=== PATIENT | female | born 1940 | race Caucasian/White ===

== ENCOUNTER → 2016-11-24 | Outpatient (CLI) | payer OTHER, MEDICAID | LOC: FIMAGING 13:28 | PROVIDERS: ATTEND Internal Medicine | DX: Z13.820 Encounter for screening for osteoporosis (principal); M85.80 Other specified disorders of bone density and structure, unspecified site ==

== ENCOUNTER 2017-05-22 07:03 | Inpatient (IN) | payer OTHER, MEDICAID ==
[2017-05-11 16:00] LABS: ANION GAP 9 mEq/L (8-16); CALCIUM 10.1 mg/dL (8.5-10.4); CARBON DIOXIDE 29 mEq/l (22-31); CHLORIDE 97 mEq/L (97-110); CREATININE 0.7 mg/dL (0.6-1.0); GLOMERULAR FILTRATION RATE > 60; GLUCOSE 87 mg/dL (70-100); POTASSIUM 4.6 mEq/L (3.5-5.2); SODIUM 135 mEq/L (134-144)
[2017-05-22] MEDS ORDERED: ROPIVACAINE 0.2% 80 MG, EPINEPHrine 0.2 MG, KETOROLAC TROMETHAMINE 30 MG, morphINE 10 M... IU ONE (07:13)
[2017-05-22] MEDS ORDERED: ceFAZolin 2 GM/DEXTROSE 100 ML IV ONE (07:13)
[2017-05-22] MEDS ORDERED: ACETAMINOPHEN 500 MG TAB PO ONE (07:13)
[2017-05-22] MEDS ORDERED: TRANEXAMIC ACID 3,000 MG in NS 50 ML IRR ONE (07:13)
--- NOTE | 2017-05-22 07:13 | PDHPUP ---
History & Physical Update H&P update statement: This history and physical update is based on an assessment of the patient which was completed after admission or registration (within 24 hours), but prior to the surgery/procedure. H&P update: H&P reviewed & patient examined, no change in patient's condition since H&P completed
[2017-05-22] MEDS ORDERED: SENNOSIDES/DOCUSATE SODIUM TAB PO PRN (07:14)
[2017-05-22] MEDS ORDERED: LORazepam 1 MG TAB PO PRN (07:14)
[2017-05-22] MEDS ORDERED: BISACODYL 10 MG SUPP PR PRN (07:14)
[2017-05-22] MEDS ORDERED: SUMAtriptan 50 MG TAB PO PRN (07:14)
[2017-05-22] MEDS ORDERED: DEXAMETHASONE PO PRN (07:14)
[2017-05-22] MEDS ORDERED: traZODone 50 MG TAB PO PRN (07:14)
[2017-05-22] MEDS ORDERED: oxyCODONE IR 5 MG TAB PO PRN (07:14)
[2017-05-22] MEDS ORDERED: ONDANSETRON DISINTEGRATING 4 MG TAB PO PRN (07:14)
[2017-05-22] MEDS ORDERED: BISMUTH SUBSALICYLATE 524 MG/30 ML UDL PO PRN (07:14)
[2017-05-22] MEDS ORDERED: HYDROCORTISONE 2.5% 30 GM CRTUBE TP PRN (07:14)
[2017-05-22] MEDS ORDERED: SUCRALFATE 1 GM/10 ML UDCUP PO PRN (07:14)
[2017-05-22] MEDS ORDERED: LORazepam 0.5 MG TAB PO PRN (07:14)
[2017-05-22] MEDS ORDERED: LIDOCAINE 1% 2 ML INJ ID PRN (07:27)
[2017-05-22] MEDS ORDERED: LR 1,000 ML IV ONE (07:27)
[2017-05-22] MEDS ORDERED: BACITRACIN 50,000 UNITS/10 ML SYR IRR ONE (07:56)
[2017-05-22] MEDS ORDERED: BUPIVACAINE 0.5% 30 ML SDV ONE (07:56)
[2017-05-22] MEDS ORDERED: POLYMYXIN B SULFATE 500,000 UNIT/10 ML SYR IRR ONE (07:56)
--- NOTE | 2017-05-22 08:54 | PDANEPAE ---
ANE History of Present Illness R total shoulder arthroplasty ANE Past Medical History - Cardiovascular History Hx Hypertension: Yes Hx Arrhythmias: No Hx Chest Pain: No Hx Coronary Artery / Peripheral Vascular Disease: No Hx CHF / Valvular Disease: No Hx Palpitations: No Cardiovascular History Comment: pcp monitors bp meds. heart cath with dr rivera 2004 - Pulmonary History Hx COPD: No Hx Asthma/Reactive Airway Disease: No Hx Recent Upper Respiratory Infection: No Hx Oxygen in Use at Home: Yes O2 in Use at Home (L/minute): 1 Hx Sleep Apnea: Yes Sleep Apnea Screening Result - Last Documented: Positive Pulmonary History Comment: central and karen dx 2003. karen 2 1/2 l at noc - Neurologic History Hx Cerebrovascular Accident: No Hx Seizures: No Hx Dementia: No Neurologic History Comment: hx of spinal fusions - Endocrine History Hx Diabetes: No Hypothyroid: Yes Endocrine History Comment: hypothyroidism. cushings disease 2003 - Renal History Hx Renal Disorders: No Renal History Comment: frequency d/t hctz wears a pad. prolapsed bladder - Liver History Hx Hepatic Disorders: No - Neurological & Psychiatric Hx Hx Neurological and Psychiatric Disorders: Yes Neurological / Psychiatric History Comment: anxiety. depression. panic attacks. 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 occassional heartburn - Other Health History Other Health History: malaria 2000. fibromyalgia 2004 - Chronic Pain History Chronic Pain: Yes (hip pain and right knee pain, fibromyalgia) - Surgical History Prior Surgeries: right shoulder scope with dr briggs 04/07/13. left shoulder scope with dr iqbal 11/08/10. left humerus revision of fx with dr iqbal 12/06/12. left humerus fx repair 2012. cataract surgery bilateral 2011 yag laser 2010 one month after right cataract. left thumb repair 2009. left knee scope 2009. total right knee replacement 2008. c5-6 fusion 2008. l5-s1 fusion 2007. tracy fundoplication 2006. elfego with oophorectomy 2003. lap karyn 2002. right knee scope 2002. right achilies tendon repair 2004. bunionectomy- right 1997. 3 right knee surgeries prior to 1979. tubal ligation 1978. barthialon cyst 1977. tonsillectomy 1959 ANE Review of Systems Review of Systems: - Exercise capacity METS (RN): 2 METS ANE Patient History - Allergies Allergies/Adverse Reactions: chlorhexidine Allergy (Intermediate, Verified 02/05/16 14:54) Hives CHLOROPREP Allergy (Intermediate, Uncoded 11/03/10 16:09) HERPES LIKE BUMPS - Home Medications Home Medications: Aspirin [Aspirin 81mg (*)] 81 mg PO DAILY 02/26/16 [Last Taken 02/26/16] Lisinopril [Zestril 20 mg (*)] 20 mg PO DAILY 02/26/16 [Last Taken 02/26/16] Acetaminophen [Tylenol 325mg (*)] 650 mg PO Q4HRS PRN 05/03/17 [Last Taken Unknown] Acyclovir [Zovirax 400 mg (*)] 400 mg PO BID 05/03/17 [Last Taken Unknown] Alendronate Sodium [Fosamax 70 MG (*)] 70 mg PO MO@0700 05/03/17 [Last Taken Unknown] Amoxicillin 2,000 mg PO AD PRN 05/03/17 [Last Taken Unknown] Armodafinil [Nuvigil 250mg] 250 mg PO DAILY 05/03/17 [Last Taken Unknown] Bimatoprost 0.01% [Lumigan 0.01% (*)] 1 drops EACHEYE HS 05/03/17 [Last Taken Unknown] Bisacodyl [Magic Bullet 10 mg] 10 mg NC DAILY PRN 05/03/17 [Last Taken Unknown] Bismuth Subsalicylate [Pepto-Bismol oral liquid (*)] 30 ml PO Q1H PRN 05/03/17 [ Last Taken Unknown] Calcium Carbonate [Tums 500MG (*)] 2,000 - 4,000 mg PO DAILY PRN 05/03/17 [Last Taken Unknown] Dexamethasone 10 ml PO QID PRN 05/03/17 [Last Taken Unknown] Herbals/Supplements -Info Only 1 ea PO DAILY 05/03/17 [Last Taken Unknown] Hydrocortisone 2.5% [Hydrocortisone 2.5% cream (*)] 1 tonya TP BID PRN 05/03/17 [ Last Taken Unknown] LORazepam [Ativan (*)] 0.5 mg PO TID PRN 05/03/17 [Last Taken Unknown] LORazepam [Ativan (*)] 1 mg PO DAILY PRN 05/03/17 [Last Taken Unknown] Levothyroxine [Synthroid 75 mcg (*)] 75 mcg PO DAILY06 05/03/17 [Last Taken Unknown] Liothyronine Sodium [Cytomel 5 mcg (*)] 5 mcg PO DAILY 05/03/17 [Last Taken Unknown] Magic Mouth Wash 5 ml PO DAILY PRN 05/03/17 [Last Taken Unknown] Multivitamins [Multivitamin (*)] 1 each PO DAILY 05/03/17 [Last Taken Unknown] Omeprazole [Prilosec 20 mg] 20 mg PO DAILY 05/03/17 [Last Taken Unknown] Ondansetron Odt [Zofran Odt 4 mg (*)] 8 mg PO Q8HRS PRN 05/03/17 [Last Taken Unknown] SUMAtriptan [Imitrex 50 MG (*)] 100 mg PO DAILY PRN 05/03/17 [Last Taken Unknown ] Sennosides/Docusate Sodium [Senna-S Tablet] 2 each PO DAILY PRN 05/03/17 [Last Taken Unknown] Sucralfate [Carafate 1gm/10ml Oral Liquid (*)] 1 gm PO QID PRN 05/03/17 [Last Taken Unknown] Venlafaxine Xr [Effexor Xr 75MG (*)] 375 mg PO DAILY 05/03/17 [Last Taken Unknown] amLODIPine BESYLATE [Norvasc 10 mg (*)] 10 mg PO DAILY 05/03/17 [Last Taken Unknown] morphINE SR [MS Contin/Oramorph 60 mg (*)] 60 mg PO BID 05/03/17 [Last Taken Unknown] oxyCODONE IR [Oxycodone Ir (*)] 20 - 40 mg PO DAILY PRN 05/03/17 [Last Taken Unknown] traZODone [traZODONE 50MG (*)] 25 mg PO HS PRN 05/03/17 [Last Taken Unknown] - NPO status NPO Since - Liquids (Date): 05/22/17 NPO Since - Liquids (Time): 18:00 NPO Since - Solids (Date): 05/22/17 NPO Since - Solids (Time): 18:00 - Smoking Hx Smoking Status: Never smoked - Family Anes Hx Family Hx Anesthesia Complications: none ANE Labs/Vital Signs - Labs Result Diagrams: 05/11/17 15:15 - Vital Signs Blood Pressure: 143/79 Heart Rate: 73 Respiratory Rate: 16 O2 Sat (%): 97 Height: 162.56 cm Weight: 68.039 kg ANE Physical Exam - Airway Neck exam: FROM Mallampati Score: Class 1 Mouth exam: poor dentition (history of gingivitis) - Pulmonary Pulmonary: clear to auscultation - Cardiovascular Cardiovascular: regular rate and rhythym - ASA Status ASA Status: III ANE Anesthesia Plan Anesthesia Plan: general endotracheal anesthesia Regional Anesthesia: single shot NB
[2017-05-22] MEDS ORDERED: morphINE SR 60 MG TAB PO SCH (09:00)
[2017-05-22] MEDS ORDERED: NON-FORMULARY NEW DRUG (Omeprazole [Prilosec 20 Mg] 20 MG) PO SCH (09:00)
[2017-05-22] MEDS ORDERED: MIDAZOLAM 2 MG/2 ML VIAL IVP ONE (09:04)
[2017-05-22] MEDS ORDERED: PROPOFOL 200 MG/20 ML VIAL ONE ×2 (09:08→09:53)
[2017-05-22] MEDS ORDERED: KETAMINE 100 MG/10 ML SYR ONE (09:08)
[2017-05-22] MEDS ORDERED: fentaNYL 100 MCG/2 ML INJ ONE ×2 (09:08)
[2017-05-22] MEDS ORDERED: ROCURONIUM 50 MG/5 ML VIAL ONE (09:10)
[2017-05-22] MEDS ORDERED: DEXAMETHASONE 4 MG/ML VIAL ONE (09:11)
[2017-05-22] MEDS ORDERED: clonIDINE 1 MG/10 ML VIAL EP ONE (09:11)
[2017-05-22] MEDS ORDERED: ROPIVACAINE HCL 150 MG/30 ML INJ ONE (09:11)
[2017-05-22] MEDS ORDERED: MIDAZOLAM 2 MG/2 ML VIAL ONE (09:12)
[2017-05-22] MEDS ORDERED: TRANEXAMIC ACID 3,000 MG/50 ML BAG IRR ONE (09:17)
[2017-05-22] MEDS ORDERED: epHEDrine SULFATE 10 MG/ML SYR ONE ×2 (10:23→11:02)
[2017-05-22] MEDS ORDERED: CALCIUM CHLORIDE 1 GM/10 ML INJ ONE (10:46)
[2017-05-22] MEDS ORDERED: THROMBIN (BOVINE) 5,000 UNIT VIAL TP ONE (10:46)
[2017-05-22] MEDS ORDERED: ONDANSETRON 4 MG/2 ML VIAL ONE (11:44)
[2017-05-22] MEDS ORDERED: NEOSTIGMINE METHYLSULFATE 3 MG/3 ML SYR ONE (11:49)
[2017-05-22] MEDS ORDERED: GLYCOPYRROLATE 0.2 MG/1 ML VIAL ONE (11:49)
[2017-05-22] MEDS ORDERED: ACETAMINOPHEN 325 MG TAB PO PRN (12:11)
[2017-05-22] MEDS ORDERED: HYDROCODONE/APAP 5/325 TAB PO PRN (12:11)
[2017-05-22] MEDS ORDERED: HYDROmorphONE/DILAUDID 1 MG/ML INJ IVP PRN (12:11)
[2017-05-22] MEDS ORDERED: PROMETHAZINE HCL 25 MG/ML INJ IVP PRN (12:11)
[2017-05-22] MEDS ORDERED: ONDANSETRON 4 MG/2 ML VIAL IVP PRN (12:11)
--- NOTE | 2017-05-22 12:11 | POSTOPPROG ---
Post Op Note Date of Operation: 05/22/17 Surgeon: Akiko Key Spiritual Care Coordinator: ray Anesthesiologist: bee Anesthesia: GET(General Endotracheal), Other (Specify) Pre-op Diagnosis: r shoulder oa Procedure: r reverse tsa Inf/Abcess present in the surg proc area at time of surgery?: No Depth: Deep Incisional (Fascial) EBL: 100-500
[2017-05-22] MEDS ORDERED: NALOXONE HCL 0.4 MG/ML INJ IVP PRN (12:41)
[2017-05-22] MEDS ORDERED: fentaNYL 100 MCG/2 ML INJ IVP PRN (12:41)
--- NOTE | 2017-05-22 13:32 | POSTANESTH ---
Post Anesthetic Evaluation Cardiovascular Status: Similar to Pre-Op Cond Respiratory Status: Similar to Pre-op Cond. Level of Consciousness/Mental Status: Can Participate in Eval Pain Control: Adequate, Prn Tx Ordered Nausea/Vomiting Control: Adequate, Prn Tx Ordered Complications Possibly Related to Anesthesia: None Noted
--- NOTE | 2017-05-22 13:33 | GOP ---
[f rep st] OPERATIVE REPORT DATE OF OPERATION: 05/22/2017 SURGEON: Akiko Key MD STEWARD/STEWARDESS DECK: Israel Mora, certified P.A., whose presence was medically necessary. ANESTHESIA: Endotracheal intubation plus scalene nerve block per surgeon's request. PREOPERATIVE DIAGNOSIS: Right shoulder osteoarthritis. POSTOPERATIVE DIAGNOSIS: Right shoulder osteoarthritis. PROCEDURE PERFORMED: Right reverse total shoulder arthroplasty. FINDINGS: INDICATIONS: This is a 77-year-old female with a several-month history of right shoulder pain worsen ing with use and with time despite multiple conservative measures. MRI exam revealed a torn rotator cuff with atrophy to the supraspinatus, as well as osteoarthritic changes of the shoulder. She wishe s to have surgery in order to resolve the problem. DESCRIPTION OF PROCEDURE: The patient was brought to the operating room after the right side had bee n identified as the correct side by the patient, nurse, physician. Once in the operating room, she w as given a scalene block on the right side, then placed under general anesthesia using endotracheal i ntubation. Once asleep, she was placed in a beach chair position. The right upper extremity sterile ly prepped and draped in the usual fashion using HEIDI/solution. Once prepped and draped, a linear inc ision was made at the deltopectoral crease extending from just lateral to the coracoid process to the axillary crease. Sharp dissection carried down through the skin and subcutaneous layers. The delto pectoral interval was identified with the cephalic vein brought medially rather than laterally. Deep er dissection was carried onto the shoulder. Noted to have a large amount of swelling within the gle nohumeral joint with no significant rotator cuff noted, with only shoulder capsule remaining in the a osmin. The capsule was incised. Abundant amount of serous fluid was within the glenohumeral joint. D issection was carried proximally and distally in order to gain access into the humeral head. The arm was able to be externally rotated 90 degrees, delivering the humeral head out of the shoulder. Osci llating saw was used to make 45 degree cut across the humeral head. Spurring from the inferior porti on of the remainder of the humeral head was removed. Canal finder was placed within the humerus, and then sequential broaches were used up to a size 14 into the shoulder which was noted to fit securely , at which point, a size [address]. A concave reamer was used to create a concave surfac e within the proximal humerus and a trial guide was put into place, noted to fit securely. The trial was left in place. The humerus was then subluxed posteriorly in order to gain access to the glenoid . Glenoid had the labrum removed. The center of the glenoid was identified, had a guidewire placed within it. The glenoid was then reamed until achieving roughened bone, and then a lug drill was pass ed over the guidewire for the central peg of the glenoid component. Smaller drill holes were made in the superior and inferior portions of the glenoid in order to get rotational control of the implant. Once completed, the wound was thoroughly irrigated with an antibiotic solution, and then a 15 mm gl enoid base plate was put into place. A central screw, as well as 4 peripheral screws were placed int o the base plate, and were secured onto the bone with the superior and inferior screws locked into pl kurtis using screw covers. Once in place, a trial was put into place, noted to fit securely with very l ittle overhang. Therefore, a 5 mm concentric Glenosphere was tapped into place. It was tugged upon to ensure that it was adequately locked into place using the Beavers taper. Once in place, trial reduc tion was performed, noted that a +0 polyethylene liner seemed to fit best. Therefore, all instrument s were removed from the humerus and a size 14 stem with size small reverse body was put into place wi th a screw placed across the 2 components. Trial reduction was again performed, noted that a +0 line r seemed to fit best. Therefore, a +0 polyethylene liner was snapped into place. The arm was easily reduced. The wound was thoroughly irrigated with antibiotic solution. Joint cocktail was injected around the shoulder itself. The capsular layer anteriorly was closed using 0 Ethibond suture in a fi [id number]-nu-rynix type stitch with plasma gel placed intra-articularly. 0 Vicryl suture was used to tack together the fascia of the deltopectoral interval. 0 Vicryl and 2-0 Vicryl suture were used for the skin. Tranexamic acid had been irrigated through the wound prior to closure, and then the skin was closed using 3-0 V-Loc suture in a running subcuticular stitch for the skin. The wound was then dres sed with Steri-Strips, Xeroform, 4 x 4s, and Tegaderm. She was completely undraped in the operating room, had a sling placed on the right upper extremity. She was then woken up, extubated, transferred onto a stretcher, and sent to recovery room in good condition. /[id number]/MODL
[2017-05-22] MEDS: ACYCLOVIR 400 MG TAB PO SCH ×2 (14:06→20:42)
[2017-05-22] MEDS: KETOROLAC 15 MG/1 ML SDV IVP SCH (17:06)
[2017-05-22] MEDS: ceFAZolin 2 GM/DEXTROSE 100 ML IV SCH (17:08)
[2017-05-22] MEDS: LISINOPRIL 20 MG TAB PO SCH (17:27)
[2017-05-22] MEDS: Armodafinil [Nuvigil 250mg] 250 MG PO SCH (17:27)
[2017-05-22] MEDS: LIOTHYRONINE SODIUM 5 MCG TAB PO SCH (17:27)
[2017-05-22] MEDS: PANTOPRAZOLE SODIUM 40 MG TAB PO SCH (17:28)
[2017-05-22] MEDS: VENLAFAXINE XR 75 MG CAP PO SCH (17:28)
[2017-05-22] MEDS: morphINE SR 30 MG TAB PO SCH (20:41)
[2017-05-22] MEDS ORDERED: BIMATOPROST 0.01% 2.5 ML OPHT.BTL EACHEYE SCH (21:00)
[2017-05-23] MEDS: KETOROLAC 15 MG/1 ML SDV IVP SCH ×3 (00:10→12:15)
[2017-05-23] MEDS: ceFAZolin 2 GM/DEXTROSE 100 ML IV SCH (00:10)
[2017-05-23 03:48] VITALS: TEMP 98.2
[2017-05-23] MEDS: OXYCODONE/APAP 5/325 TAB PO PRN ×3 (04:07→12:15)
[2017-05-23] MEDS ORDERED: LEVOTHYROXINE 75 MCG TAB PO SCH (06:00)
[2017-05-23] MEDS: morphINE SR 30 MG TAB PO SCH (08:03)
[2017-05-23 08:09] VITALS: BP 128/84; PULSE 57; RESP 20
[2017-05-23] MEDS: ACYCLOVIR 400 MG TAB PO SCH (08:10)
[2017-05-23] MEDS: LISINOPRIL 20 MG TAB PO SCH (08:10)
[2017-05-23] MEDS: VENLAFAXINE XR 75 MG CAP PO SCH (08:10)
[2017-05-23] MEDS: LIOTHYRONINE SODIUM 5 MCG TAB PO SCH (08:10)
[2017-05-23] MEDS: Armodafinil [Nuvigil 250mg] 250 MG PO SCH (08:11)
[2017-05-23] MEDS: PANTOPRAZOLE SODIUM 40 MG TAB PO SCH (08:11)
--- NOTE | 2017-05-23 09:59 | SOAPPROG ---
SOAP Progress Note Assessment/Plan: Assessment: Plan: - d/c home, with PT and OT - sling on, may remove for feeding, dressing and exercise - follow up in 1 week 05/23/17 09:58 Subjective: Doing well, pain is minimal. Feels ready to d/c home Objective: Vital Signs Temp Pulse Resp BP Pulse Ox 36.8 C 57 L 20 128/84 H 100 05/23/17 08:08 05/23/17 08:08 05/23/17 08:08 05/23/17 08:08 05/23/17 08:08 Laboratory Results 05/11/17 15:15 05/22/17 05/23/17 05/24/17 05:59 05:59 05:59 Intake Total 1275 Output Total 1050 Balance 225 Dressing CDI, sensation intact, NVI - Time Spent With Patient Time Spent With Patient: 15 - Pending Discharge Pending Discharge Within 24 Hours: Yes Pending Discharge Within 48 Hours: No Pending Discharge Date: 05/24/17 Pending Discharge Time: 11:00 ICD10 Worksheet Patient Problems: Problems Problem Status Onset Closed intratrochanteric fracture of left femur Acute OA (osteoarthritis) of hip Acute
--- NOTE | 2017-05-23 10:03 | PDIAF ---
- Diagnosis Code Status: Full Code - Medication Management Discharge Medications: Medications to Continue on Transfer Aspirin [Aspirin 81mg (*)] 81 mg PO DAILY 02/26/16 [Last Taken 02/26/16] Lisinopril [Zestril 20 mg (*)] 20 mg PO DAILY 02/26/16 [Last Taken 02/26/16] Acetaminophen [Tylenol 325mg (*)] 650 mg PO Q4HRS PRN 05/03/17 [Last Taken Unknown] Acyclovir [Zovirax 400 mg (*)] 400 mg PO BID 05/03/17 [Last Taken Unknown] Alendronate Sodium [Fosamax 70 MG (*)] 70 mg PO MO@0700 05/03/17 [Last Taken Unknown] Amoxicillin 2,000 mg PO AD PRN 05/03/17 [Last Taken Unknown] Armodafinil [Nuvigil 250mg] 250 mg PO DAILY 05/03/17 [Last Taken Unknown] Bimatoprost 0.01% [Lumigan 0.01% (*)] 1 drops EACHEYE HS 05/03/17 [Last Taken Unknown] Bisacodyl [Magic Bullet 10 mg] 10 mg MD DAILY PRN 05/03/17 [Last Taken Unknown] Bismuth Subsalicylate [Pepto-Bismol oral liquid (*)] 30 ml PO Q1H PRN 05/03/17 [ Last Taken Unknown] Calcium Carbonate [Tums 500MG (*)] 2,000 - 4,000 mg PO DAILY PRN 05/03/17 [Last Taken Unknown] Dexamethasone 10 ml PO QID PRN 05/03/17 [Last Taken Unknown] Herbals/Supplements -Info Only 1 ea PO DAILY 05/03/17 [Last Taken Unknown] Hydrocortisone 2.5% [Hydrocortisone 2.5% cream (*)] 1 tonya TP BID PRN 05/03/17 [ Last Taken Unknown] LORazepam [Ativan (*)] 0.5 mg PO TID PRN 05/03/17 [Last Taken Unknown] LORazepam [Ativan (*)] 1 mg PO DAILY PRN 05/03/17 [Last Taken Unknown] Levothyroxine [Synthroid 75 mcg (*)] 75 mcg PO DAILY06 05/03/17 [Last Taken Unknown] Liothyronine Sodium [Cytomel 5 mcg (*)] 5 mcg PO DAILY 05/03/17 [Last Taken Unknown] Magic Mouth Wash 5 ml PO DAILY PRN 05/03/17 [Last Taken Unknown] Multivitamins [Multivitamin (*)] 1 each PO DAILY 05/03/17 [Last Taken Unknown] Omeprazole [Prilosec 20 mg] 20 mg PO DAILY 05/03/17 [Last Taken Unknown] Ondansetron Odt [Zofran Odt 4 mg (*)] 8 mg PO Q8HRS PRN 05/03/17 [Last Taken Unknown] SUMAtriptan [Imitrex 50 MG (*)] 100 mg PO DAILY PRN 05/03/17 [Last Taken Unknown ] Sennosides/Docusate Sodium [Senna-S Tablet] 2 each PO DAILY PRN 05/03/17 [Last Taken Unknown] Sucralfate [Carafate 1gm/10ml Oral Liquid (*)] 1 gm PO QID PRN 05/03/17 [Last Taken Unknown] Venlafaxine Xr [Effexor Xr 75MG (*)] 375 mg PO DAILY 05/03/17 [Last Taken Unknown] amLODIPine BESYLATE [Norvasc 10 mg (*)] 10 mg PO DAILY 05/03/17 [Last Taken Unknown] morphINE SR [MS Contin/Oramorph 60 mg (*)] 60 mg PO BID 05/03/17 [Last Taken Unknown] oxyCODONE IR [Oxycodone Ir (*)] 20 - 40 mg PO DAILY PRN 05/03/17 [Last Taken Unknown] traZODone [traZODONE 50MG (*)] 25 mg PO HS PRN 05/03/17 [Last Taken Unknown] Discharge Medications: Refer to the Discharge Home Medication list for PRN reason. PICC Care - Routine: N/A - Orders Services needed: Physical Therapy, Occupational Therapy Diet Recommendation: no restrictions on diet Diet Texture: Regular Texture Diet Cesar: Not applicable Wound Care Instructions: Keep dressing on, may shower over dressing. Will remove in office Activity/Weight Bearing Restrictions: Sling all times for support, may remove for dressing, feeding, and exercise. She is clear for light AROM. - Follow Up Care Current Providers and Referrals: Antony Bland MD [Primary Care Provider] -
[2017-05-23 10:46] VITALS: O2SAT 91
--- NOTE | 2017-05-23 10:56 | PDIAF ---
- Diagnosis Code Status: Full Code - Medication Management Discharge Medications: Medications to Continue on Transfer Aspirin [Aspirin 81mg (*)] 81 mg PO DAILY 02/26/16 [Last Taken 02/26/16] Lisinopril [Zestril 20 mg (*)] 20 mg PO DAILY 02/26/16 [Last Taken 02/26/16] Acetaminophen [Tylenol 325mg (*)] 650 mg PO Q4HRS PRN 05/03/17 [Last Taken Unknown] Acyclovir [Zovirax 400 mg (*)] 400 mg PO BID 05/03/17 [Last Taken Unknown] Alendronate Sodium [Fosamax 70 MG (*)] 70 mg PO MO@0700 05/03/17 [Last Taken Unknown] Amoxicillin 2,000 mg PO AD PRN 05/03/17 [Last Taken Unknown] Armodafinil [Nuvigil 250mg] 250 mg PO DAILY 05/03/17 [Last Taken Unknown] Bimatoprost 0.01% [Lumigan 0.01% (*)] 1 drops EACHEYE HS 05/03/17 [Last Taken Unknown] Bisacodyl [Magic Bullet 10 mg] 10 mg WA DAILY PRN 05/03/17 [Last Taken Unknown] Bismuth Subsalicylate [Pepto-Bismol oral liquid (*)] 30 ml PO Q1H PRN 05/03/17 [ Last Taken Unknown] Calcium Carbonate [Tums 500MG (*)] 2,000 - 4,000 mg PO DAILY PRN 05/03/17 [Last Taken Unknown] Dexamethasone 10 ml PO QID PRN 05/03/17 [Last Taken Unknown] Herbals/Supplements -Info Only 1 ea PO DAILY 05/03/17 [Last Taken Unknown] Hydrocortisone 2.5% [Hydrocortisone 2.5% cream (*)] 1 tonya TP BID PRN 05/03/17 [ Last Taken Unknown] LORazepam [Ativan (*)] 0.5 mg PO TID PRN 05/03/17 [Last Taken Unknown] LORazepam [Ativan (*)] 1 mg PO DAILY PRN 05/03/17 [Last Taken Unknown] Levothyroxine [Synthroid 75 mcg (*)] 75 mcg PO DAILY06 05/03/17 [Last Taken Unknown] Liothyronine Sodium [Cytomel 5 mcg (*)] 5 mcg PO DAILY 05/03/17 [Last Taken Unknown] Magic Mouth Wash 5 ml PO DAILY PRN 05/03/17 [Last Taken Unknown] Multivitamins [Multivitamin (*)] 1 each PO DAILY 05/03/17 [Last Taken Unknown] Omeprazole [Prilosec 20 mg] 20 mg PO DAILY 05/03/17 [Last Taken Unknown] Ondansetron Odt [Zofran Odt 4 mg (*)] 8 mg PO Q8HRS PRN 05/03/17 [Last Taken Unknown] SUMAtriptan [Imitrex 50 MG (*)] 100 mg PO DAILY PRN 05/03/17 [Last Taken Unknown ] Sennosides/Docusate Sodium [Senna-S Tablet] 2 each PO DAILY PRN 05/03/17 [Last Taken Unknown] Sucralfate [Carafate 1gm/10ml Oral Liquid (*)] 1 gm PO QID PRN 05/03/17 [Last Taken Unknown] Venlafaxine Xr [Effexor Xr 75MG (*)] 375 mg PO DAILY 05/03/17 [Last Taken Unknown] amLODIPine BESYLATE [Norvasc 10 mg (*)] 10 mg PO DAILY 05/03/17 [Last Taken Unknown] morphINE SR [MS Contin/Oramorph 60 mg (*)] 60 mg PO BID 05/03/17 [Last Taken Unknown] oxyCODONE IR [Oxycodone Ir (*)] 20 - 40 mg PO DAILY PRN 05/03/17 [Last Taken Unknown] traZODone [traZODONE 50MG (*)] 25 mg PO HS PRN 05/03/17 [Last Taken Unknown] Discharge Medications: Refer to the Discharge Home Medication list for PRN reason. PICC Care - Routine: N/A - Orders Services needed: Home Care, Physical Therapy, Occupational Therapy Home Care Face to Face: I certify that this patient was under my care and that I had the required [id number] encounter meeting the encounter requirements on the discharge day. My findings support the fact that the patient is homebound as defined in Home Care Face to Face Continued: CMS Chapter 7 Medicare Benefits Manual 30.1.1 , The condition of the patient is such that there exists a normal inability to leave home and consequently, leaving home would require a considerable and taxing effort. Diet Recommendation: no restrictions on diet Diet Texture: Regular Texture Diet Cesar: Not applicable Wound Care Instructions: Keep dressing on, may shower over dressing. Will remove in office Activity/Weight Bearing Restrictions: Sling all times for support, may remove for dressing, feeding, and exercise. She is clear for light AROM. - Follow Up Care Current Providers and Referrals: Antony Bland MD [Primary Care Provider] - Akiko Key MD [Medical Doctor] - follow up in 2 weeks (unless already has follow up scheduled)
--- NOTE | 2017-05-23 11:19 | ASMTCMCOM ---
CM Note CM Note Notes: Pt will dc today. She normally lives at [facility] but she will be staying w/her partner Gustavo at his place so that he can be around to help her. Gustavo's address included in referral and given to inessa mendez/[facility]. Pt will have PT/OT and RN to help set up meds. D/W [facility] Fischer and RN. Date Signed: 05/23/2017 11:19 AM Electronically Signed By:Lo Ascencio RN
--- NOTE | 2017-05-23 15:51 | ASDISCHSUM ---
Discharge Information Plan Status:Home with Home Health Medically Cleared to Leave: Discharge Date:05/23/2017 01:24 PM D/C Disposition:Home Health Service ADT D/C Disposition:Home, Routine, Self-Care Projected Discharge Date:05/23/2017 11:00 AM Transportation at D/C:Friend Discharge Delay Reason: Follow-Up Date:05/23/2017 11:00 AM Discharge Slot: Final Diagnosis: Placement Information Referral Type:*Home Health Care Services Referral ID:[id number] Provider Name:[facility] Address 1:[address] [place] [address] Address 2: City:[place] Selection Factors: State:[place] Patient Contact Information Contact Name:FABIOLA Relationship:Life Partner Address:[address] City:[place] Alternate Phone: State/Zip Code:[place] [address] Email: Financial Information Financial Class:Medicare Advantage Plans Primary Plan Desc:[employer] MEDICARE Primary Plan Number:[id number] Secondary Plan Desc:[place] Secondary Plan Number:[id number] Assessment Information [facility] CM Progress Note CM Note CM Note Notes: Pt will dc today. She normally lives at [facility] but she will be staying w/her partner Gustavo at his place so that he can be around to help her. Gustavo's address included in referral and given to inessa mendez/[facility]. Pt will have PT/OT and RN to help set up meds. D/W WILSON Fischer and RN. Date Signed: 05/23/2017 11:19 AM Electronically Signed By:Lo Ascencio RN Intervention Information
[2017-05-28] MEDS ORDERED: ALENDRONATE SODIUM 70 MG TAB PO SCH (07:00)
== END 2017-05-23 13:24 | disposition home or self-care (01) | DRG 483 ==
LOC: F3N 07:03
PROVIDERS: ADMIT Orthopaedic Surgery; ATTEND Orthopaedic Surgery
PROC: 0RRJ00Z Replacement of Right Shoulder Joint with Reverse Ball and Socket Synthetic Substitute, Open Approach (ICD-10-PCS; principal; 2017-05-22 08:30)
DX: M19.011 Primary osteoarthritis, right shoulder (principal); E03.9 Hypothyroidism, unspecified; M81.0 Age-related osteoporosis without current pathological fracture; F41.0 Panic disorder [episodic paroxysmal anxiety]; G89.4 Chronic pain syndrome; F32.9 Major depressive disorder, single episode, unspecified; G47.31 Primary central sleep apnea; I10 Essential (primary) hypertension; Z96.651 Presence of right artificial knee joint
CPT/HCPCS: 97161-GP; 97166-GO; C1713; J0171; J0690; J0735; J1100; J1885; J2250; J2405; J2704; J2710; J2795; J3010

== ENCOUNTER 2018-01-01 07:15 | Inpatient (IN) | payer OTHER, MEDICAID ==
[~2018-01-01 07:15] MED LIST: *PREOP 1000MG*TRANEX ACID/NS 100 ML IV ONE; TRANEXAMIC ACID 1,000 MG in NS (SYRINGE) 50 ML IV ONE
[2018-01-01] MEDS ORDERED: GABAPENTIN 300 MG CAP PO ONE (10:24)
[2018-01-01] MEDS ORDERED: ACETAMINOPHEN 500 MG TAB PO ONE (10:24)
[2018-01-01] MEDS ORDERED: ceFAZolin 2 GM/SWFI 2 GM/20 ML SYR IVP ONE (10:24)
[2018-01-01] MEDS ORDERED: LR 1,000 ML IV ONE (10:25)
[2018-01-01] MEDS ORDERED: LIDOCAINE 1% 2 ML INJ ID PRN (10:25)
[2018-01-01] MEDS ORDERED: LIDOCAINE 1% 2 ML INJ ONE (10:33)
[2018-01-01 11:33] LABS: PLATELET COUNT 256 10^3/uL (150-400)
[2018-01-01] MEDS ORDERED: BUPIVACAINE 0.25% 30 ML SDV ONE (13:54)
[2018-01-01] MEDS ORDERED: BACITRACIN 50,000 UNITS/10 ML SYR IRR ONE (13:54)
[2018-01-01] MEDS ORDERED: EPINEPHrine 1 MG/ML INJ ONE (13:54)
[2018-01-01] MEDS ORDERED: CHLORHEXIDINE GLUC HIBICLENS 118 ML BTL TP ONE (13:55)
[2018-01-01] MEDS ORDERED: POVIDONE-IODINE 30 GM OINTTUBE TP ONE (13:55)
[2018-01-01] MEDS ORDERED: THROMBIN (BOVINE) 20,000 UNIT VIAL TP ONE (13:55)
[2018-01-01] MEDS ORDERED: MIDAZOLAM 2 MG/2 ML VIAL IVP ONE (15:26)
--- NOTE | 2018-01-01 15:26 | PDANEPAE ---
ANE History of Present Illness Arm and leg pain ANE Past Medical History - Cardiovascular History Hx Hypertension: Yes Hx Arrhythmias: No Hx Chest Pain: No Hx Coronary Artery / Peripheral Vascular Disease: No Hx CHF / Valvular Disease: No Hx Palpitations: No Cardiovascular History Comment: heart cath with dr rivera 2004 - Pulmonary History Hx COPD: No Hx Asthma/Reactive Airway Disease: No Hx Recent Upper Respiratory Infection: No Hx Oxygen in Use at Home: Yes Hx Sleep Apnea: Yes Sleep Apnea Screening Result - Last Documented: Positive Pulmonary History Comment: central and karen dx 2004. karen 2l at [facility] - Neurologic History Hx Cerebrovascular Accident: No Hx Seizures: No Hx Dementia: No Neurologic History Comment: hx of spinal fusions - Endocrine History Hx Diabetes: No Endocrine History Comment: hypothyroidism. cushings disease 2003 - Renal History Hx Renal Disorders: No Renal History Comment: frequency d/t hctz wears a pad. prolapsed bladder - Liver History Hx Hepatic Disorders: No - Neurological & Psychiatric Hx Hx Neurological and Psychiatric Disorders: Yes Neurological / Psychiatric History Comment: anxiety. depression. panic attacks. 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 occassional heartburn. IBS - Other Health History Other Health History: malaria 2000. fibromyalgia 2004 - Chronic Pain History Chronic Pain: Yes (CERVICAL & LUMBAR ,hip pain and right knee pain, fibromyalgia ) - Surgical History Prior Surgeries: R SHOULDER REVERSAL. L FEMUR REPAIR W/DEE. right shoulder scope with dr briggs 04/07/13. left shoulder scope with dr iqbal 11/08/10. left humerus revision of fx with dr iqbal 12/06/12. left humerus fx repair 2012. cataract surgery bilateral 2011 yag laser 2010 one month after right cataract. left thumb repair 2009. left knee scope 2009. total right knee replacement 2008. c5-6 fusion 2008. l5-s1 fusion 2007. tracy fundoplication 2006. elfego with oophorectomy 2004. lap karyn 2002. right knee scope 2002. right achilies tendon repair 2004. bunionectomy- right 1997. 3 right knee surgeries prior to 1979. tubal ligation 1978. barthialon cyst 1977. tonsillectomy 1959 ANE Review of Systems Review of Systems: - Exercise capacity METS (RN): 2 METS ANE Patient History - Allergies Allergies/Adverse Reactions: chlorhexidine Allergy (Intermediate, Verified 06/25/16 14:54) Hives CHLOROPREP Allergy (Intermediate, Uncoded 11/03/10 16:09) HERPES LIKE BUMPS - Home Medications Home Medications: Aspirin [Aspirin 81mg (*)] 81 mg PO DAILY 02/26/16 [Last Taken 1 Week Ago ~12/25] Lisinopril [Zestril 20 mg (*)] 20 mg PO DAILY 02/26/16 [Last Taken 1 Day Ago ~] Acetaminophen [Tylenol 325mg (*)] 650 mg PO Q4HRS PRN 05/03/17 [Last Taken 1 Day Ago ~12/31/17] Amoxicillin 2,000 mg PO AD PRN 05/03/17 [Last Taken 1 Month Ago ~12/02/17] Bimatoprost 0.01% [Lumigan 0.01% (*)] 1 drops EACHEYE HS 05/03/17 [Last Taken 1 Day Ago ~12/31/17] Bismuth Subsalicylate [Pepto-Bismol oral liquid (*)] 30 ml PO Q4 PRN 05/03/17 [ Last Taken 1 Year Ago ~01/01/17] Herbals/Supplements -Info Only 1 ea PO DAILY 05/03/17 [Last Taken 1 Day Ago ~] Hydrocortisone 2.5% [Hydrocortisone 2.5% cream (*)] 1 tonya TP BID PRN 05/03/17 [ Last Taken 6 Months Ago ~07/04/17] LORazepam [Ativan (*)] 1 - 2 mg PO TID PRN 05/03/17 [Last Taken 01/01/18] Levothyroxine [Synthroid 75 mcg (*)] 75 mcg PO DAILY06 05/03/17 [Last Taken ] Liothyronine Sodium [Cytomel 5 mcg (*)] 5 mcg PO DAILY 05/03/17 [Last Taken ] Magic Mouth Wash 5 ml PO DAILY PRN 05/03/17 [Last Taken 1 Day Ago ~12/31/17] Multivitamins [Multivitamin (*)] 1 each PO DAILY 05/03/17 [Last Taken 2 Days Ago ~12/30/17] Omeprazole [Prilosec 20 mg] 20 mg PO DAILY 05/03/17 [Last Taken 01/01/18] Ondansetron Odt [Zofran Odt 4 mg (*)] 8 mg PO Q8HRS PRN 05/03/17 [Last Taken 1 Day Ago ~12/31/17] SUMAtriptan [Imitrex 50 MG (*)] 100 mg PO DAILY PRN 05/03/17 [Last Taken 2 Months Ago ~11/01/17] Estradiol [Vivelle-Dot 0.075MG (*)] 0.075 mg TD MoFr@0800 12/31/17 [Last Taken 1 Day Ago ~12/31/17] Hydrochlorothiazide [HCTZ (*)] 12.5 mg PO DAILY 12/31/17 [Last Taken 1 Day Ago ~ 12/31/17] QUEtiapine FUMARATE [Seroquel 50 mg (*)] 50 mg PO HS 12/31/17 [Last Taken 1 Day Ago ~12/31/17 1900] Timolol 0.5% [TIMOPTIC 0.5% (*)] 1 drops EACHEYE BID 12/31/17 [Last Taken ] Venlafaxine HCl [Venlafaxine HCl ER] 150 mg PO DAILY 12/31/17 [Last Taken ] Venlafaxine HCl [Venlafaxine HCl ER] 225 mg PO DAILY 12/31/17 [Last Taken ] amLODIPine BESYLATE [Norvasc 10 mg (*)] 10 mg PO DAILY 12/31/17 [Last Taken 0700] morphINE SR [MS Contin/Oramorph 60 mg (*)] 60 mg PO DAILY 12/31/17 [Last Taken 01/01/18 0430] morphINE SR [MS Contin/Oramorph SR 30 mg (*)] 30 mg PO HS 12/31/17 [Last Taken 1 Day Ago ~12/31/17 1900] oxyCODONE IR [Oxycodone Ir (*)] 15 - 30 mg PO BID PRN 12/31/17 [Last Taken 01/01 0700] - NPO status NPO Since - Liquids (Date): 01/01/18 NPO Since - Liquids (Time): 09:00 NPO Since - Solids (Date): 12/31/17 NPO Since - Solids (Time): 17:30 - Smoking Hx Smoking Status: Never smoked - Family Anes Hx Family Hx Anesthesia Complications: none ANE Labs/Vital Signs - Labs Result Diagrams: 01/01/18 11:05 01/01/18 11:05 - Vital Signs Blood Pressure: 144/84 Heart Rate: 69 Respiratory Rate: 16 O2 Sat (%): 95 Height: 162.56 cm Weight: 62.596 kg ANE Physical Exam - Airway Neck exam: decreased ROM Mallampati Score: Class 2 Mouth exam: normal dental/mouth exam - Pulmonary Pulmonary: no respiratory distress - Cardiovascular Cardiovascular: regular rate and rhythym - ASA Status ASA Status: III ANE Anesthesia Plan Anesthesia Plan: general endotracheal anesthesia
[2018-01-01] MEDS ORDERED: PROPOFOL/EMULSION 500 MG/50 ML BOTTLE IV ONE ×2 (15:31→18:07)
[2018-01-01] MEDS ORDERED: fentaNYL 100 MCG/2 ML INJ ONE ×5 (15:31→20:48)
[2018-01-01] MEDS ORDERED: PROPOFOL 200 MG/20 ML VIAL ONE (15:31)
[2018-01-01] MEDS ORDERED: REMIFENTANIL HCL 1 MG VIAL ONE (15:32)
[2018-01-01] MEDS ORDERED: CITRATE DEXTROSE SOLN 500 ML BAG ONE ×2 (16:07→19:08)
[2018-01-01] MEDS ORDERED: KETAMINE 200 MG/20 ML VIAL ONE (16:21)
[2018-01-01] MEDS ORDERED: PHENYLEPHRINE HCL 100 MCG/ML SYR ONE (18:46)
[2018-01-01] MEDS ORDERED: DEXAMETHASONE 4 MG/ML VIAL ONE (19:37)
[2018-01-01] MEDS ORDERED: ROCURONIUM 50 MG/5 ML VIAL ONE (19:37)
[2018-01-01] MEDS ORDERED: ONDANSETRON 4 MG/2 ML VIAL ONE (19:37)
[2018-01-01] MEDS ORDERED: LIDOCAINE 2% 5 ML SDV ONE (19:37)
[2018-01-01] MEDS ORDERED: ceFAZolin 1 GM VIAL ONE ×2 (19:37)
[2018-01-01] MEDS ORDERED: ONDANSETRON 4 MG/2 ML VIAL IVP PRN ×2 (19:58→20:26)
[2018-01-01] MEDS ORDERED: NALOXONE HCL 0.4 MG/ML INJ IVP PRN ×2 (19:58→20:26)
--- NOTE | 2018-01-01 20:06 | GOP ---
[f rep st] OPERATIVE REPORT DATE OF OPERATION: 01/01/2018 SURGEON: Elieser Del Castillo MD NEUROSURGEON: Elieser Del Castillo MD CORPORATE CONCIERGE: HAWK Krishna ANESTHESIA: General endotracheal. 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 POSTOPERATIVE DIAGNOSIS: Progressive cervical spondylitic myelopathy with severe spinal cord josh jane and progressive loss of function. PROCEDURE PERFORMED: Removal of C5-6 anterior cervical plate with exploration of spinal fusion at th at level. Complete C3-4 and C6-7 anterior cervical diskectomy and arthrodesis with structural PEEK i nterbody spacers and local autograft. Placement of a 23 mm anterior cervical plate at C3-4 and a 25 mm plate at C6-7. Use of intraoperative microscopy and fluoroscopy. FINDINGS: ESTIMATED BLOOD LOSS: 50 cc. INDICATIONS: The patient is a 77-year-old woman with progressive myelopathic symptoms secondary to m ultilevel cervical spondylosis and severe spinal cord compression. She presents for surgical decompr ession and stabilization through an anterior and posterior approach. DESCRIPTION OF PROCEDURE: After informed consent was obtained, the patient was taken to the operatin g room and placed in the supine position with the head in the halter retractor system. The anterior cervical region was prepped and draped in sterile fashion. After fluoroscopic localization of the co rrect levels, the subcutaneous and intramuscular tissues were infiltrated with local anesthesia. Two separate incisions were created, one at C3-4 and one at C6-7, and these were carried through the mallika tysmal layer using monopolar electrocautery and carried in the avascular plane between the sternoclei domastoid and carotid sheath laterally and the strap muscles, trachea, and esophagus medially down to the prevertebral fascia which was carefully incised with Metzenbaum scissors at each level. The lar ge osteophytes were carefully removed after re-verification of the correct level using intraoperative fluoroscopy. The C5-6 anterior cervical plate was identified and carefully removed and the fusion e xplored and noted to be solid. The distraction pins were then inserted, first at C3-4, then at C6-7, during which time complete diskectomies were performed with preparation of endplates and removal of posterior longitudinal ligament at each level. Bilateral foraminotomies were performed and the poste rior osteophytes were removed as well for adequate decompression of the spinal cord and neural forami na bilaterally. Both disk spaces were copiously irrigated with antibiotic irrigation. Meticulous he mostasis was achieved. Appropriately sized grafts were then inserted with local autograft in the shelby ter under fluoroscopic image guidance. The distraction was removed serially and appropriately sized plates were placed at each level with self-drilling screws, again under fluoroscopic image guidance. Following verification of good position of the plate, screws and interbody spacers using biplanar fl uoroscopy, the locking mechanisms were engaged. The remaining autograft was placed in the anterior h ole plate, a drain was placed, and the wounds were closed in a layered fashion using interrupted Vicr yl sutures followed by Steri-Strips on the skin. COMPLICATIONS: None. DISPOSITION: The patient was then repositioned for the posterior portion of the operation. /[id number]/MODL
--- NOTE | 2018-01-01 20:10 | GOP ---
[f rep st] OPERATIVE REPORT DATE OF OPERATION: 01/01/2018 SURGEON: Elieser Del Castillo MD NEUROSURGEON: Elieser Del Castillo MD REEL BLADE BENDER FURNACE TENDER: HAWK Krishna ANESTHESIA: General endotracheal. 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 POSTOPERATIVE DIAGNOSIS: Progressive cervical spondylitic myelopathy with severe spinal cord josh jane and progressive loss of function. PROCEDURE PERFORMED: C3 through C7 posterior cervical laminectomy and placement of posterior segment al (lateral mass screw) fixation with posterior lateral fusion from the C3 through C7 using local aut ograft. Use of intraoperative microscopy and fluoroscopy. FINDINGS: ESTIMATED BLOOD LOSS: 75 cc. INDICATIONS: The patient is a 77-year-old woman with progressive myelopathic symptoms secondary to m ultilevel cervical spondylosis and severe spinal cord compression. She presents for surgical decompr ession and stabilization through an anterior and posterior approach. DESCRIPTION OF PROCEDURE: After the anterior portion of the procedure was completed, the patient was repositioned prone with the head in a Sandy head of business development. Note that neuromonitoring signals were monitored throughout the case including from baseline without patient manipulation at all. After pos ition with the head in a Sandy head of business development, the posterior cervical region was prepped and draped i n sterile fashion. After fluoroscopic localization of the correct level, the subcutaneous and intram uscular tissues were infiltrated with local anesthesia. A midline linear incision was then created f rom approximately C3 through C7. This was carried down to the fascial layer which was then incised u sing monopolar electrocautery and carried in the subperiosteal plane along the spinous processes and lamina bilaterally. Intraoperative fluoroscopy was again utilized to verify the correct levels. Fol lowing this, the dissection was carried out laterally over the facet joints. Laminectomy defects wer e then created with the Tyler drill system and the massive fluted bur drilling between the lamina a nd the lateral masses bilaterally. The bone was lifted off and carefully cleaned and used for local autograft. Lateral mass screw fixation was then placed in standard fashion at C3 through [facility]. Each individual screw was tested neurophysiologically with monopolar electrostimulation and int erpretation of the potentials by the surgeon. The rods were then placed and secured, and the facet j oints and remaining lamina, lateral masses bilaterally were decorticated, and a local autograft in th e laminectomy defect was placed out laterally. Following re-verification of good position of the scr ews and rods using biplanar fluoroscopy, a drain was placed and the wound was closed in a layered fas hion using interrupted Vicryl sutures followed by Steri-Strips on the skin. COMPLICATIONS: None. DISPOSITION: The patient is currently in the process of being repositioned for extubation. /[id number]/MODL
[2018-01-01] MEDS ORDERED: SUMAtriptan 50 MG TAB PO PRN (20:19)
[2018-01-01] MEDS ORDERED: BISMUTH SUBSALICYLATE 524 MG/30 ML UDL PO PRN (20:19)
[2018-01-01] MEDS ORDERED: ONDANSETRON DISINTEGRATING 4 MG TAB PO PRN ×2 (20:19→20:26)
[2018-01-01] MEDS ORDERED: LORazepam 1 MG TAB PO PRN (20:19)
[2018-01-01] MEDS ORDERED: HYDROCORTISONE 2.5% 30 GM CRTUBE TP PRN (20:19)
[2018-01-01] MEDS ORDERED: MAGNESIUM HYDROXIDE 30 ML UDCUP PO PRN (20:26)
[2018-01-01] MEDS ORDERED: diphenhydrAMINE 25 MG CAP PO PRN (20:26)
[2018-01-01] MEDS ORDERED: HYDROmorphONE/DILAUDID 6 MG/30 ML PCA IV PRN (20:26)
[2018-01-01] MEDS ORDERED: LACTULOSE 20 GM/30 ML UDCUP PO PRN (20:26)
[2018-01-01] MEDS ORDERED: BISACODYL 10 MG SUPP PR PRN (20:26)
--- NOTE | 2018-01-01 20:34 | POSTOPPROG ---
Post Op Note Date of Operation: 01/01/18 Surgeon: Elieser Del Castillo Sprayer Machine: Shan Anesthesiologist: Rosendo Anesthesia: GET(General Endotracheal) Pre-op Diagnosis: Cervical stenosis Post-op Diagnosis: same Indication: myelopathy Procedure: C3/4, C6/7 ACDF and C3-7 posterior fusion Findings: stenosis Inf/Abcess present in the surg proc area at time of surgery?: No EBL: 100-500 Complications: None Drains: Enzo Logan
--- NOTE | 2018-01-01 20:36 | SOAPPROG ---
ANU Progress Note Assessment/Plan: Assessment: 77 yo F sp C3/4, C6/7 ACDF and C3-7 posterior decompression and fusion Plan: stable IMCU overnight hard collar x-rays in am please call with neuro changes 01/01/18 20:34 Subjective: + neck pain, no arm pain Objective: Vital Signs Temp Pulse Resp BP Pulse Ox 36.9 C 69 16 144/84 H 95 01/01/18 11:42 01/01/18 16:16 01/01/18 16:16 01/01/18 16:16 01/01/18 16:16 Laboratory Results 01/01/18 11:05 01/01/18 11:05 somnolent PERRL, no facial droop ISABEL x 4 + light touch ICD10 Worksheet Patient Problems: Problems Problem Status Onset Closed intratrochanteric fracture of left femur Acute OA (osteoarthritis) of hip Acute
--- NOTE | 2018-01-01 20:44 | POSTANESTH ---
Post Anesthetic Evaluation Cardiovascular Status: Similar to Pre-Op Cond Respiratory Status: Similar to Pre-op Cond. Level of Consciousness/Mental Status: Alert and Oriented, Mildly Sleepy, Arousable Pain Control: Adequate, Prn Tx Ordered Nausea/Vomiting Control: Adequate, Prn Tx Ordered Complications Possibly Related to Anesthesia: None Noted
[2018-01-01] MEDS ORDERED: HYDROmorphONE/DILAUDID 2 MG/ML INJ ONE (20:49)
[2018-01-01] MEDS: HYDROmorphONE/DILAUDID 2 MG/ML INJ IVP PRN ×2 (20:53→21:31)
[2018-01-01] MEDS: fentaNYL 100 MCG/2 ML INJ IVP PRN ×2 (20:53→21:31)
[2018-01-01] MEDS: NS W/ 20 KCl/L 1,000 ML IV SCH (21:47)
[2018-01-01] MEDS ORDERED: METHOCARBAMOL 750 MG in NS 50 ML IV PRN (21:53)
[2018-01-01] MEDS: FAMOTIDINE 20 MG TAB PO SCH (21:58)
[2018-01-01] MEDS: SENNOSIDES/DOCUSATE SODIUM TAB PO SCH (21:58)
[2018-01-01] MEDS: morphINE SR 30 MG TAB PO SCH (21:58)
[2018-01-01] MEDS: GABAPENTIN 300 MG CAP PO SCH (22:01)
[2018-01-01] MEDS: DIAZEPAM 5 MG/ML 1 ML SYR IVP PRN (22:07)
[2018-01-01] MEDS ORDERED: DEXMEDETOMIDINE HCL 400 MCG in NS 100 ML IV SCH (22:30)
[2018-01-01] MEDS: ACETAMINOPHEN 500 MG TAB PO SCH ×2 (22:43→23:01)
[2018-01-01] MEDS: BIMATOPROST 0.01% 2.5 ML OPHT.BTL EACHEYE SCH (22:43)
[2018-01-01] MEDS: POLYETHYLENE GLYCOL 3350 17 GM PKT PO SCH (22:46)
[2018-01-01] MEDS: TIMOLOL 0.5% 15 ML OPHT.BTL EACHEYE SCH (22:46)
[2018-01-01] MEDS: QUEtiapine FUMARATE 50 MG TAB PO SCH ×2 (22:46→23:00)
[2018-01-01] MEDS: ceFAZolin 2 GM/DEXTROSE 100 ML IV SCH (23:22)
[2018-01-02] MEDS: GABAPENTIN 300 MG CAP PO SCH ×3 (05:05→21:57)
[2018-01-02] MEDS: LEVOTHYROXINE 75 MCG TAB PO SCH (05:05)
[2018-01-02] MEDS: DIAZEPAM 5 MG TAB PO PRN (05:05)
[2018-01-02] MEDS: ACETAMINOPHEN 500 MG TAB PO SCH ×3 (05:05→22:00)
--- NOTE | 2018-01-02 05:33 | PDMN ---
Medical Necessity Medical necessity: Pt meets INPT criteria per MD and [facility] S-330 (C3/4, C6/7 ACDF and C3-7 posterior fusion, [facility] IPO surgery).
[2018-01-02 05:41] LABS: PLATELET COUNT 190 10^3/uL (150-400)
[2018-01-02] MEDS: morphINE SR 60 MG TAB PO SCH (08:45)
[2018-01-02] MEDS: oxyCODONE IR 15 MG TAB PO PRN ×2 (08:48→15:36)
[2018-01-02] MEDS ORDERED: PANTOPRAZOLE SODIUM 40 MG TAB PO SCH (09:00)
--- NOTE | 2018-01-02 09:32 | SOAPPROG ---
ANU Progress Note Assessment/Plan: Assessment: 77 yo F POD #1 C3/4, C6/7 ACDF and C3-7 posterior decompression and fusion Plan: stable and doing well overall transfer to floor scd/anjelica for dvt prophylaxis, lovenox starts POD #3 hard collar x-rays today please call with neuro changes seen by Dr Rios today 01/01/18 20:34 01/02/18 09:29 Subjective: + neck pain, hand numbness better. no arm pain. Objective: Vital Signs Temp Pulse Resp BP Pulse Ox 36.6 C 65 17 150/67 H 100 01/02/18 07:53 01/02/18 07:53 01/02/18 07:53 01/02/18 07:53 01/02/18 07:53 Laboratory Results 01/02/18 04:57 01/02/18 04:57 01/01/18 01/02/18 01/03/18 05:59 05:59 05:59 Intake Total 2421.8 Output Total 865 Balance 1556.8 AAOx4, +FC PERRL, EOMI 5/5 + light touch C/D/I x 2 ICD10 Worksheet Patient Problems: Problems Problem Status Onset Closed intratrochanteric fracture of left femur Acute OA (osteoarthritis) of hip Acute
[2018-01-02] MEDS: ceFAZolin 2 GM/DEXTROSE 100 ML IV SCH (10:30)
[2018-01-02] MEDS: FAMOTIDINE 20 MG TAB PO SCH ×2 (10:33→21:58)
[2018-01-02] MEDS: HYDROCHLOROTHIAZIDE 12.5 MG CAP PO SCH (10:34)
[2018-01-02] MEDS: LIOTHYRONINE SODIUM 5 MCG TAB PO SCH (10:34)
[2018-01-02] MEDS: LISINOPRIL 20 MG TAB PO SCH (10:34)
[2018-01-02] MEDS: VENLAFAXINE XR 150 MG CAP PO SCH (10:34)
[2018-01-02] MEDS: SENNOSIDES/DOCUSATE SODIUM TAB PO SCH ×2 (10:34→22:20)
[2018-01-02] MEDS: POLYETHYLENE GLYCOL 3350 17 GM PKT PO SCH ×3 (10:35→22:20)
[2018-01-02] MEDS: TIMOLOL 0.5% 15 ML OPHT.BTL EACHEYE SCH ×2 (10:35→22:03)
[2018-01-02] MEDS: VENLAFAXINE XR 75 MG CAP PO SCH (10:35)
--- NOTE | 2018-01-02 11:20 | ASMTCASEMG ---
Living Arrangements What is your living Answers: With Partner arrangement? Who do you live with? Type Of Residence What kind of residence do Answers: House you live in? Discharge Plan Comments Coordination Status Comments Notes: Patient is a 77yo female who lives with her life partner in [place]. She was admitted for plate removal at C5/6, C3/4, C6/7, anterior cervical discectomy with PEEK spacer and plating, followed by a C3-7 posterior instrumentation and fusion. PT/OT/SAND SLINGER OPERATOR evals have been ordered. D/C plan TBD. CM will follow. Date Signed: 01/02/2018 11:19 AM Electronically Signed By:Caitlin Littlejohn LCSW
[2018-01-02] MEDS: METHOCARBAMOL 750 MG TAB PO PRN ×2 (11:51→21:59)
[2018-01-02] MEDS: DIAZEPAM 5 MG/ML 1 ML SYR IVP PRN ×2 (13:18→22:46)
[2018-01-02] MEDS: NS W/ 20 KCl/L 1,000 ML IV SCH (14:03)
[2018-01-02] MEDS: BIMATOPROST 0.01% 2.5 ML OPHT.BTL EACHEYE SCH (21:54)
[2018-01-02] MEDS: morphINE SR 30 MG TAB PO SCH (21:56)
[2018-01-02] MEDS: QUEtiapine FUMARATE 50 MG TAB PO SCH (22:20)
[2018-01-03] MEDS: LEVOTHYROXINE 75 MCG TAB PO SCH (06:55)
[2018-01-03] MEDS: ACETAMINOPHEN 500 MG TAB PO SCH (06:55)
[2018-01-03] MEDS: GABAPENTIN 300 MG CAP PO SCH (06:55)
--- NOTE | 2018-01-03 07:18 | SOAPPROG ---
ANU Progress Note Assessment/Plan: Assessment: 77 yo F POD #2 C3/4, C6/7 ACDF and C3-7 posterior decompression and fusion Plan: stable and doing well overall :) hard collar for 1 month scd/anjelica for dvt prophylaxis, lovenox starts POD #3 x-rays look great DC paraplanner to eval SNF/Rehab options ok to dc when placement found please call with neuro changes seen by Dr Rios today 01/01/18 20:34 01/02/18 09:29 01/03/18 07:17 Subjective: continued neck pain, some dysphagia, no arm pain, numbness better Objective: Vital Signs Temp Pulse Resp BP Pulse Ox 37.0 C 59 L 15 106/52 L 99 01/02/18 16:00 01/03/18 00:00 01/03/18 00:00 01/03/18 00:00 01/03/18 00:00 Laboratory Results 01/02/18 04:57 01/02/18 04:57 01/02/18 01/03/18 01/04/18 05:59 05:59 05:59 Intake Total 2421.8 1283 Output Total 865 145 Balance 1556.8 1138 AAOX4, +FC PERRL, EOMI, no facial droop 5/5 + light touch C/D/I ICD10 Worksheet Patient Problems: Problems Problem Status Onset Closed intratrochanteric fracture of left femur Acute OA (osteoarthritis) of hip Acute
[2018-01-03] MEDS: GABAPENTIN 250 MG/5 ML 30 ML BOTTLE PO SCH ×3 (08:45→21:48)
[2018-01-03] MEDS: ACETAMINOPHEN 650 MG/20.3 ML UDCUP PO SCH ×3 (08:45→21:52)
[2018-01-03] MEDS: LANSOPRAZOLE SUSP 30MG/10ML UDSYR (Adult) TUBE SCH (09:02)
[2018-01-03] MEDS: LISINOPRIL 20 MG TAB PO SCH (09:03)
[2018-01-03] MEDS: HYDROCHLOROTHIAZIDE 12.5 MG CAP PO SCH (09:06)
[2018-01-03] MEDS: morphINE SR 60 MG TAB PO SCH (09:07)
[2018-01-03] MEDS: SENNOSIDES/DOCUSATE SODIUM TAB PO SCH ×2 (09:08→17:57)
[2018-01-03] MEDS: POLYETHYLENE GLYCOL 3350 17 GM PKT PO SCH ×3 (09:08→17:57)
[2018-01-03] MEDS: METHOCARBAMOL 750 MG TAB PO PRN (09:17)
[2018-01-03] MEDS: LIOTHYRONINE SODIUM 5 MCG TAB PO SCH (09:18)
[2018-01-03] MEDS: TIMOLOL 0.5% 15 ML OPHT.BTL EACHEYE SCH ×2 (09:20→21:50)
[2018-01-03] MEDS ORDERED: METHOCARBAMOL 500 MG TAB PO PRN (09:42)
[2018-01-03] MEDS: VENLAFAXINE HCL 75 MG TAB PO SCH ×2 (10:18→22:04)
[2018-01-03] MEDS: oxyCODONE IR 15 MG TAB PO PRN ×3 (10:18→18:27)
[2018-01-03] MEDS: VENLAFAXINE XR 150 MG CAP PO SCH (10:34)
[2018-01-03] MEDS: VENLAFAXINE XR 75 MG CAP PO SCH (10:34)
[2018-01-03] MEDS: DIAZEPAM 5 MG TAB PO PRN ×2 (15:11→21:47)
--- NOTE | 2018-01-03 15:18 | ASMTCMCOM ---
CM Note CM Note Notes: Spoke with patient about her interest in SNF rehab. She is willing to go and wants me to send out referrals to [facility] and [facility]. She later in the day expressed interest in [facility] and stated she had changed her mind about [facility] and does not want to go there. A referral was sent to [facility] as back up and they are interested in patient. However, patient would like to see if she can get into [facility] first. Contacted [facility] back to put referral on hold with them. Spoke with patient's daughter [place] as well. She is supportive of SNF rehab for her mother. CM will follow. Date Signed: 01/03/2018 03:17 PM Electronically Signed By:Caitlin Littlejohn LCSW
[2018-01-03] MEDS: morphINE SR 30 MG TAB PO SCH (21:47)
[2018-01-03] MEDS: QUEtiapine FUMARATE 50 MG TAB PO SCH (21:48)
[2018-01-03] MEDS: BIMATOPROST 0.01% 2.5 ML OPHT.BTL EACHEYE SCH (21:49)
[2018-01-04] MEDS: ACETAMINOPHEN 650 MG/20.3 ML UDCUP PO SCH ×2 (05:54→13:20)
[2018-01-04] MEDS: oxyCODONE IR 15 MG TAB PO PRN ×3 (05:55→17:41)
[2018-01-04] MEDS: GABAPENTIN 250 MG/5 ML 30 ML BOTTLE PO SCH ×2 (05:55→15:40)
--- NOTE | 2018-01-04 07:21 | NEUSURGPN ---
Assessment/Plan: Assessment: 77 yo F POD #3 C3/4, C6/7 ACDF and C3-7 posterior decompression and fusion Plan: stable PT/OT/SDC TEACHER hard collar for 1 month scd/anjelica for dvt prophylaxis, lovenox starts POD #3 x-rays show stable hardware DC liaison planner to eval SNF/Rehab options DC anterior ANDRÉS drain today, dc posterior drain friday 01/05 ok to dc when placement found please call with neuro changes D/w Dr Rios Subjective: Pt resting in bed, states she is doing ok. Eating smoothies. Objective: AAOx3 NAD VSS MAEx4 Motor 12/15 BUE C collar on JPx2 Urinary Catheter in Place: No Catheter Insertion Date: 01/01/18 - Physician Discussed Patient with : Magdalene Neurosurgery Physical Exam - Vitals, I&O, Labs I and O 01/03/18 01/04/18 01/05/18 05:59 05:59 05:59 Intake Total 1483 1389 Output Total 175 50 25 Balance 1308 1339 -25 Intake: Oral (ml) 700 700 IV Intake (ml) 783 689 Output: ANDRÉS Drain Output (ml) 175 50 25 Anterior Neck Enzo 40 10 10 Logan Posterior Neck Enzo 135 40 15 Logan Other: Number of Voids Toilet 2 2 Number of Stools Toilet 1 Vital Signs Temp Pulse Resp BP Pulse Ox 37.2 C 61 16 107/61 94 01/03/18 23:00 01/03/18 23:00 01/03/18 23:00 01/03/18 23:00 01/03/18 23:00 Laboratory Results 01/02/18 04:57 01/02/18 04:57 ICD10 Worksheet Patient Problems: Problems Problem Status Onset Closed intratrochanteric fracture of left femur Acute OA (osteoarthritis) of hip Acute
[2018-01-04] MEDS ORDERED: ESTRADIOL VIVELLE 0.075 MG PATCH TD SCH (08:00)
[2018-01-04] MEDS: HYDROCHLOROTHIAZIDE 12.5 MG CAP PO SCH (08:35)
[2018-01-04] MEDS: VENLAFAXINE HCL 75 MG TAB PO SCH (08:35)
[2018-01-04] MEDS: LEVOTHYROXINE 75 MCG TAB PO SCH (08:37)
[2018-01-04] MEDS: LANSOPRAZOLE SUSP 30MG/10ML UDSYR (Adult) TUBE SCH ×2 (08:38→09:02)
[2018-01-04] MEDS: SENNOSIDES/DOCUSATE SODIUM TAB PO SCH (08:39)
[2018-01-04] MEDS: POLYETHYLENE GLYCOL 3350 17 GM PKT PO SCH ×2 (08:39→15:37)
[2018-01-04] MEDS: LISINOPRIL 20 MG TAB PO SCH (08:39)
[2018-01-04] MEDS: TIMOLOL 0.5% 15 ML OPHT.BTL EACHEYE SCH (08:40)
[2018-01-04] MEDS ORDERED: ENOXAPARIN 40 MG/0.4 ML SYR SC SCH (09:00)
[2018-01-04] MEDS: morphINE SR 60 MG TAB PO SCH (10:18)
[2018-01-04] MEDS: LIOTHYRONINE SODIUM 5 MCG TAB PO SCH (10:20)
--- NOTE | 2018-01-04 15:02 | PDIAF ---
- Diagnosis Code Status: Full Code - Medication Management Discharge Medications: Medications to Continue on Transfer Lisinopril [Zestril 20 mg (*)] 20 mg PO DAILY 02/26/16 [Last Taken 1 Day Ago ~] Acetaminophen [Tylenol 325mg (*)] 650 mg PO Q4HRS PRN 05/03/17 [Last Taken 1 Day Ago ~12/31/17] Amoxicillin 2,000 mg PO AD PRN 05/03/17 [Last Taken 1 Month Ago ~12/02/17] Bimatoprost 0.01% [Lumigan 0.01% (*)] 1 drops EACHEYE HS 05/03/17 [Last Taken 1 Day Ago ~12/31/17] Bismuth Subsalicylate [Pepto-Bismol oral liquid (*)] 30 ml PO Q4 PRN 05/03/17 [ Last Taken 1 Year Ago ~01/01/17] Hydrocortisone 2.5% [Hydrocortisone 2.5% cream (*)] 1 tonya TP BID PRN 05/03/17 [ Last Taken 6 Months Ago ~07/04/17] LORazepam [Ativan (*)] 1 - 2 mg PO TID PRN 05/03/17 [Last Taken 01/01/18] Levothyroxine [Synthroid 75 mcg (*)] 75 mcg PO DAILY06 05/03/17 [Last Taken ] Liothyronine Sodium [Cytomel 5 mcg (*)] 5 mcg PO DAILY 05/03/17 [Last Taken ] Magic Mouth Wash 5 ml PO DAILY PRN 05/03/17 [Last Taken 1 Day Ago ~12/31/17] Multivitamins [Multivitamin (*)] 1 each PO DAILY 05/03/17 [Last Taken 2 Days Ago ~12/30/17] Omeprazole [Prilosec 20 mg] 20 mg PO DAILY 05/03/17 [Last Taken 01/01/18] Ondansetron Odt [Zofran Odt 4 mg (*)] 8 mg PO Q8HRS PRN 05/03/17 [Last Taken 1 Day Ago ~12/31/17] SUMAtriptan [Imitrex 50 MG (*)] 100 mg PO DAILY PRN 05/03/17 [Last Taken 2 Months Ago ~11/01/17] Estradiol [Vivelle-Dot 0.075MG (*)] 0.075 mg TD MoFr@0800 12/31/17 [Last Taken 1 Day Ago ~12/31/17] Hydrochlorothiazide [HCTZ (*)] 12.5 mg PO DAILY 12/31/17 [Last Taken 1 Day Ago ~ 12/31/17] QUEtiapine FUMARATE [Seroquel 50 mg (*)] 50 mg PO HS 12/31/17 [Last Taken 1 Day Ago ~12/31/17 1900] Timolol 0.5% [TIMOPTIC 0.5% (*)] 1 drops EACHEYE BID 12/31/17 [Last Taken ] Venlafaxine HCl [Venlafaxine HCl ER] 150 mg PO DAILY 12/31/17 [Last Taken ] Venlafaxine HCl [Venlafaxine HCl ER] 225 mg PO DAILY 12/31/17 [Last Taken ] amLODIPine BESYLATE [Norvasc 10 mg (*)] 10 mg PO DAILY 12/31/17 [Last Taken 0700] morphINE SR [MS Contin/Oramorph 60 mg (*)] 60 mg PO DAILY 12/31/17 [Last Taken 01/01/18 0430] morphINE SR [MS Contin/Oramorph SR 30 mg (*)] 30 mg PO HS 12/31/17 [Last Taken 1 Day Ago ~12/31/17 1900] oxyCODONE IR [Oxycodone Ir (*)] 15 - 30 mg PO BID PRN 12/31/17 [Last Taken 01/01 0700] Diazepam [Valium 5 MG (*)] 5 mg PO Q6HRS PRN tab 01/04/18 [Last Taken Unknown] Methocarbamol [Robaxin 750 mg (*)] 750 mg PO QID PRN tab 01/04/18 [Last Taken Unknown] Sennosides/Docusate Sodium [Senokot-S] 1 - 2 tab PO BID tab 01/04/18 [Last Taken Unknown] Discharge Medications: Refer to the Discharge Home Medication list for PRN reason. - Orders Services needed: Registered Nurse, Certified Lift Builder Whole, Physical Therapy, Occupational Therapy, Speech Language Pathologist Isolation Type: None Diet Recommendation: no restrictions on diet Diet Texture: Dysphagia 1 - Pureed, Thin Liquids, Meds Whole w/Liquids, Meds Crushed in Puree Wound Care Instructions: Keep incisions c/d/i. Remove posterior ANDRÉS drain on Additional Instructions: No bending/lifting/twisting wear hard collar at all times 5-10lb weight limit DC posterior ANDRÉS drain on Sunday01/05/18 Follow up in 2-3 weeks Call with any issues @ [phone] - Follow Up Care Current Providers and Referrals: Antony Bland MD [Primary Care Provider] - Elieser Del Castillo MD [Medical Doctor] -
[2018-01-04 15:47] VITALS: BP 113/72
--- NOTE | 2018-01-04 16:00 | ASMTCMCOM ---
CM Note CM Note Notes: [facility] has obtained [employer] insurance authorization. Pt medically stable for d/c, order sent in [employer]. Heidi with [facility] scheduled van transport for 18:00. ELMER November to call report. Date Signed: 01/04/2018 04:00 PM Electronically Signed By:RANI Lane
== END 2018-01-04 17:54 | DRG 455 ==
LOC: F3N 10:04 → F2N 21:22 → F3N 01-03 18:03
PROVIDERS: ADMIT Neurological Surgery; ATTEND Neurological Surgery
PROC: 0RG20A0 Fusion of 2 or more Cervical Vertebral Joints with Interbody Fusion Device, Anterior Approach, Anterior Column, Open Approach (ICD-10-PCS; principal; 2018-01-01 12:45)
PROC: 4A1004G Monitoring of Central Nervous Electrical Activity, Intraoperative, Open Approach (ICD-10-PCS; principal; 2018-01-01 12:45)
PROC: 0RG2071 Fusion of 2 or more Cervical Vertebral Joints with Autologous Tissue Substitute, Posterior Approach, Posterior Column, Open Approach (ICD-10-PCS; principal; 2018-01-01 12:45)
PROC: 00NW0ZZ Release Cervical Spinal Cord, Open Approach (ICD-10-PCS; principal; 2018-01-01 12:45)
PROC: 0RT30ZZ Resection of Cervical Vertebral Disc, Open Approach (ICD-10-PCS; principal; 2018-01-01 12:45)
PROC: 0RP104Z Removal of Internal Fixation Device from Cervical Vertebral Joint, Open Approach (ICD-10-PCS; principal; 2018-01-01 12:45)
DX: M47.12 Other spondylosis with myelopathy, cervical region (principal); I10 Essential (primary) hypertension; G47.33 Obstructive sleep apnea (adult) (pediatric); G47.31 Primary central sleep apnea; E03.9 Hypothyroidism, unspecified; F41.9 Anxiety disorder, unspecified; F32.9 Major depressive disorder, single episode, unspecified; Z96.651 Presence of right artificial knee joint
CPT/HCPCS: 92526-GN; 92610-GN; 97116-GP; 97162-GP; 97166-GO; 97530-GP; 97535-GO; C1713; G8978-GP-CK; G8979-GP-CJ; J0171; J0690; J1100; J1170; J1650; J2250; J2270; J2370; J2405; J2704; J2800; J3010; J3360; J7060